=== PATIENT | male | born 1960 | race Caucasian/White ===

== ENCOUNTER → 2021-06-02 15:23 | Outpatient (BNVA) | payer BC, SELFPAY | PROVIDERS: Family Provider Family Medicine; Visit Provider Surgery | DX: Z20.822 Contact with and (suspected) exposure to COVID-19 (principal) | CPT/HCPCS: 87635 ==

== ENCOUNTER 2021-06-07 07:11 | Day surgery (SDC) | payer BC, SELFPAY ==
[2021-06-05 14:16] VITALS: BMI 31.1
--- NOTE | 2021-06-07 07:36 | ANES.PREANE2 ---
Pre-Anesthetic Assessment Pre-Anesthetic Assessment: Height/Weight: Height 1.83 m Weight 104.326 kg Preop Diagnosis: screening Proposed Procedure: Operation Date: 06/07/21 09:00 Proposed Procedures p Colonoscopy 66947 z12.11(Not Applicable) - Suresh Jett MD Familial anesthetic complications: None Last intake: > 8 hrs Social: Social History: No alcohol and No tobacco Exam: Pre-Anes Outpt Exam: alert, oriented x 3, clear to auscultation bilaterally and regular rate & rhythm Airway: MP: 3 Dentition: Full Anesthetic Plan: ASA status: 1 Anesthesia: MAC Risk of > 500 ml blood loss (7ml/kg in children): No Data Anesthesia Cardiac Studies: No Data to Display
[2021-06-07 08:43] VITALS: BP 156/107; PULSE 75; RESP 16; TEMP 36.8; O2SAT 97
[2021-06-07] MEDS: sodium chloride 0.9% 1,000 ML 30 ML IV (08:45)
--- NOTE | 2021-06-07 08:54 | W.PM.OPSFHP ---
Same Day Surgery H&P Indication for Procedure/HPI DATE OF PROCEDURE: June 07, 2021 CHIEF COMPLAINT/INDICATIONFOR SURGICAL PROCEDURE: Screening colonoscopy PREOP DIAGNOSIS: screening colonoscopy PLANNED PROCEDRUE: Operation Date: 06/07/21 09:00 Proposed Procedures p Colonoscopy 03749 z12.11(Not Applicable) - Suresh Jett MD This is a pleasant 62 years old gentleman referred to my practice for screening colonoscopy. Patient had one 10 years ago and was reported as normal per his description. Denies history of colon cancer or bleeding per rectum. ROS All systems have been reviewed negative except as per the above or per problem list Medications/Allergies* Home Medications Medication Instructions Recorded Confirmed Type No Known Home Medications 06/05/21 06/07/21 History Allergies/Adverse Reactions Allergy/AdvReac Type Severity Reaction Status Date / Time amoxicillin Allergy ALGY-Rash Verified 06/07/21 08:47 Current Medications: Generic Name Dose Route Start Last Admin Trade Name Freq PRN Reason Stop Dose Admin Sodium Chloride 1,000 mls @ 30 mls/hr 06/07/21 07:30 06/07/21 08:45 Sodium Chloride 0.9% IV 06/08/21 07:29 30 mls/hr .Q24H FANNY Administration Pertinent Exam Findings alert, oriented x 3, clear to auscultation bilaterally, regular rate & rhythm and procedure specific exam findings (Abdominal examination nontender nondistended soft) Recommendations Surgery/Procedure today (Colonoscopy with possible biopsy) Other Plans: Plan of care; After thorough history and physical examination and reviewing the chart, plan to perform screening colonoscopy. I discussed with the patient in details the risks,benefits,alternatives and indications.The risk of aspiration, bleeding, soft tissue injury, perforation of the colon and other potential concomitant complications were explained to the patient in details,also the potential need for Laproscoy/Laparotomy to repair any related complications including but not limited to colectomy and or Closotomy.The patient understood this well and did agree to proceed. Rationale was carefully and clearly discussed with the patient.Appropriate informed consent have been reviewed and signed All questions have been answered and all concerns have been addressed to patient's satisfaction. Verbal and written Instructions were given to the patient for colonoscopy prep Coding Level of Care Code Acute Right Of Way Supervisor for Sarbjit García
[2021-06-07 10:46] VITALS: BP 141/89; PULSE 82; RESP 16; TEMP 36.3; O2SAT 93
[2021-06-07 10:57] VITALS: BP 121/87; PULSE 88; RESP 18; O2SAT 97
--- NOTE | 2021-06-07 13:39 | ANE.PACU2 ---
Inpatient post-anesthesia follow up: Airway intact: Yes Vital signs: Temperature 97.3 F Pulse Rate 88 Respiratory Rate 18 Blood Pressure 121/87 Pulse Oximetry 97 Oxygen Delivery Me thod Room Air Oxygen Flow Rate Fraction of Inspir ed Oxygen Hydration adequate: Yes Nausea and vomiting: No Pain level: 2 Mental status: Baseline
== END 2021-06-07 11:11 | disposition home or self-care (01) ==
PROVIDERS: PCP Family Medicine; Visit Provider Surgery
PROC: 0DJD8ZZ Inspection of Lower Intestinal Tract, Via Natural or Artificial Opening Endoscopic (ICD-10-PCS; CPT 45378; principal; 2021-06-07 09:00)
DX: Z12.11 Encounter for screening for malignant neoplasm of colon (principal); K63.5 Polyp of colon; K64.4 Residual hemorrhoidal skin tags; K57.30 Diverticulosis of large intestine without perforation or abscess without bleeding
CPT/HCPCS: 45380; 88305; 96360; 96361; J2704; J7030

== ENCOUNTER 2024-01-24 17:59 | Emergency (ER) | payer OTHER, SELFPAY ==
[2024-01-24 18:03] VITALS: BP 177/96; RESP 18; TEMP 36.9
--- NOTE | 2024-01-24 18:18 | ED_ITS ---
Documented by User: Saturnino Domingo DO 01/25/24 07:17 HPI - Extremity Problem General: Chief complaint: Extremity Problem,Nontraumatic Stated complaint: Dr Darling ordered ultrasound back of left leg Time Seen by Provider: 01/24/24 18:12 History of Present Illness: 63-year-old male presents to the emergen cy room with leg pain. He seen his physician and [facility] was directed here to evaluate for DVT. Patient has some mild left calf pain. He fell 6 weeks ago and injured his knee he has been ambulatory on it since that time. He has some ecchymosis on the anterior knee that is resolving. No chest pain no shortness of breath no tachycardia. Associated symptoms: Deny chest pain, fever(s) or rash Review of Systems Const: Denies: fever(s) or chills Card: Denies: chest pain Resp: Denies: dyspnea GI: Denies: abdominal pain : Denies: dysuria, urinary frequency or urinary urgency Musc: Reports: extremity pain and extremity swelling; Denies: neck pain or back pain Skin/Breast: Denies: rash PFSH ED PFSH: Social History Smoking and tobacco/nicotine status: former use of tobacco/nicotine Physical Exam Const: GENERAL APPEARANCE: cooperative and comfortable ORIENTATION/CONSCIOUSNESS: Yes awake, Yes oriented to person, Yes oriented to place and Yes oriented to time HENMT: COMMON NORMALS: normocephalic, atraumatic and hearing grossly normal bilaterally HEAD & SCALP: normocephalic and atraumatic Resp: COMMON NORMALS: normal respiratory effort, No retractions, No use of accessory muscles and clear to auscultation bilaterally AUSCULTATION: clear to auscultation bilaterally Cardio: COMMON NORMALS: regular rate, regular rhythm and No murmurs present (Cardio) RATE: regular rate RHYTHM: regular rhythm Extremity: OTHER: Examination of the examination of the left leg there are some mild bruising over the proximal anterior tibia. mild joint effusion in the left knee. No ligament ous instability or laxity mild swelling posteriorly negative Homans Neuro: SENSORIUM/ORIENTATION: Yes oriented to person, Yes oriented to place and Yes oriented to time Skin: COMMON NORMALS: no rashes or lesions noted GENERAL SKIN EXAM: no rashes or lesions noted Course Vital Signs: Vital signs: Vital Signs Temperature 98.4 F 01/24/24 18:03 Pulse Rate 70 01/24/24 20:16 Respiratory Rate 16 01/24/24 20:16 Blood Pressure 157/96 01/24/24 20:16 Pulse Oximetry 98 01/24/24 20:16 Oxygen Delivery Me thod Room Air 01/24/24 19:20 MDM - Extremity (Nontraumatic) Medical Decision Making Care signed out to Dr. Reza at change of shift. See final notes for diagnosis and disposition. 63-year-old male gentleman checked out at shift change. He was sent for posterior knee pain to rule out DVT. His venous duplex is negative. His x-ray shows no fracture. He does have a small knee joint effusion. He complains of medial joint pain. He likely has an MCL tear. Recommendations were were given to him for a hinged sports knee brace. He will follow-up as an outpatient. Lab Data Radiology Impressions Knee X-Ray 01/24/24 18:35 IMPRESSION: No acute osseous findings. Mild degenerative changes. Small knee joint effusion. Venous Duplex 01/24/24 18:35 IMPRESSION: No evidence of deep vein thrombosis. Discharge Plan Discharge Patient Disposition: Home Clinical Impression: Left knee sprain Condition: Stable Prescriptions: No Action No Known Home Medications Discharge Orders: Discharge ED (Routine); Ordered 01/24/24 Ordered By: Gallo Reza Referrals: Jose Lock [Primary Care Provider] - 4-7 days Patient Instructions: Knee Sprain (ED), Opioid Safety, Pain Management Activity Restrictions/Additional Instructions: Ice can help with pain and swelling. [id number] medication for pain and swelling as well. Return for continued problems. See your doctor next week. It is recommended that she obtain a hinged sports knee brace for support while weightbearing. Coding Level of Care Code ED Geophysical Observer for Chg Fwd Documented by User: Gallo Reza, 01/24/24 21:52 HPI - Extremity Problem General: Chief complaint: Extremity Problem,Nontraumatic Stated complaint: Dr Darling ordered ultrasound back of left leg Time Seen by Provider: 01/24/24 18:12 History of Present Illness: 63-year-old male presents to the emergen cy room with leg pain. He seen his physician and [facility] was directed here to evaluate for DVT. Patient has some mild left calf pain. He fell 6 weeks ago and injured his knee he has been ambulatory on it since that time. He has some ecchymosis on the anterior knee that is resolving. No chest pain no shortness of breath no tachycardia. [facility] ED PFSH: Social History Smoking and tobacco/nicotine status: former use of tobacco/nicotine Course Vital Signs: Vital signs: Vital Signs Temperature 98.4 F 01/24/24 18:03 Pulse Rate 70 01/24/24 20:16 Respiratory Rate 16 01/24/24 20:16 Blood Pressure 157/96 01/24/24 20:16 Pulse Oximetry 98 01/24/24 20:16 Oxygen Delivery Me thod Room Air 01/24/24 19:20 MDM - Extremity (Nontraumatic) Medical Decision Making 63-year-old male gentleman checked out at shift change. He was sent for posterior knee pain to rule out DVT. His venous duplex is negative. His x-ray shows no fracture. He does have a small knee joint effusion. He complains of medial joint pain. He likely has an MCL tear. Recommendations were were given to him for a hinged sports knee brace. He will follow-up as an outpatient. Lab Data Radiology Impressions Knee X-Ray 01/24/24 18:35 IMPRESSION: No acute osseous findings. Mild degenerative changes. Small knee joint effusion. Venous Duplex 01/24/24 18:35 IMPRESSION: No evidence of deep vein thrombosis. All radiology interpretation(s) finalized by discharge Discharge Plan Discharge Patient Disposition: Home Clinical Impression: Left knee sprain Condition: Stable Prescriptions: No Action No Known Home Medications Discharge Orders: Discharge ED (Routine); Ordered 01/24/24 Ordered By: Gallo Reza Referrals: Jose Lock [Primary Care Provider] - 4-7 days Patient Instructions: Knee Sprain (ED), Opioid Safety, Pain Management Activity Restrictions/Additional Instructions: Ice can help with pain and swelling. [id number] medication for pain and swelling as well. Return for continued problems. See your doctor next week. It is recommended that she obtain a hinged sports knee brace for support while weightbearing. Coding Level of Care Code ED Geophysical Observer for Sarbjit García
--- NOTE | 2024-01-24 18:35 | USR_ITS ---
PROCEDURE INFORMATION: Exam: US Duplex Left Lower Extremity Veins, Limited Exam date and time: 01/24/2024 6:51 PM Age: 63 years old Clinical indication: Pain; Leg, lower; Left; Additional info: Lower leg pain TECHNIQUE: Imaging protocol: Real-time duplex ultrasound of the left extremity with 2-D lane scale, color Doppler flow and spectral waveform analysis including responses to compression and other maneuvers (when performed) with image documentation. Limited exam focused on the left lower extremity veins. COMPARISON: No relevant prior studies available. FINDINGS: Left deep veins: Unremarkable. The common femoral, femoral, proximal profunda femoral and popliteal veins are patent without thrombus. Normal Doppler waveforms. Normal compressibility and/or augmentation response. Superficial veins: Greater saphenous vein at the saphenofemoral junction is patent without thrombus. Soft tissues: Unremarkable. US/CV venous duplex [facility] [id number] IMPRESSION: No evidence of deep vein thrombosis.
--- NOTE | 2024-01-24 18:35 | XRR_ITS ---
PROCEDURE INFORMATION: Exam: XR Left Knee Exam date and time: 01/24/2024 7:10 PM Age: 63 years old Clinical indication: Injury or trauma; Fall; Work related; Blunt trauma; Knee; Left TECHNIQUE: Imaging protocol: Radiologic exam of the left knee. Views: 3 views. COMPARISON: [place] [id number] 01/24/2024 6:51 PM FINDINGS: Bones/joints: No acute fractures or subluxations. Alignment is anatomic. Mild degenerative changes with joint space narrowing and tiny marginal osteophytes. Small knee joint effusion. Soft tissues: Soft tissues are unremarkable. XR/XR knee LT 3V* [id number] IMPRESSION: No acute osseous findings. Mild degenerative changes. Small knee joint effusion.
[2024-01-24 19:20] VITALS: BP 160/100; PULSE 85; RESP 16; O2SAT 98
[2024-01-24 20:16] VITALS: BP 157/96; PULSE 70; RESP 16; O2SAT 98
== END 2024-01-24 20:54 | disposition home or self-care (01) ==
PROVIDERS: Emergency Provider Emergency Medicine; PCP Family Medicine
DX: S83.92XA Sprain of unspecified site of left knee, initial encounter (principal); Z87.891 Personal history of nicotine dependence; W19.XXXA Unspecified fall, initial encounter
CPT/HCPCS: 73562; 93971; 99284

== ENCOUNTER → 2024-11-26 15:24 | Outpatient (BNVA) | payer MEDICARE, SELFPAY | PROVIDERS: PCP Family Medicine; Referring Provider Family Medicine; Visit Provider Nurse Practitioner Family | DX: L71.1 Rhinophyma (principal); L71.8 Other rosacea; D36.14 Benign neoplasm of peripheral nerves and autonomic nervous system of thorax; Z80.8 Family history of malignant neoplasm of other organs or systems; T22.212A Burn of second degree of left forearm, initial encounter; X58.XXXA Exposure to other specified factors, initial encounter; L82.0 Inflamed seborrheic keratosis; L29.89 Other pruritus; Z78.9 Other specified health status; L53.8 Other specified erythematous conditions; R20.8 Other disturbances of skin sensation; L57.0 Actinic keratosis | CPT/HCPCS: 17000; 17110; 99204 ==

== ENCOUNTER → 2025-06-01 09:34 | Outpatient (BNVA) | payer MEDICARE, SELFPAY | PROVIDERS: PCP Family Medicine; Visit Provider Nurse Practitioner Family | DX: L71.1 Rhinophyma (principal); L71.9 Rosacea, unspecified; Z80.8 Family history of malignant neoplasm of other organs or systems; B07.8 Other viral warts; Z78.9 Other specified health status; R20.8 Other disturbances of skin sensation; L82.0 Inflamed seborrheic keratosis; L57.0 Actinic keratosis | CPT/HCPCS: 17000; 17110; 99214 ==